=== PATIENT | female | born 1985 | race Asian ===

== ENCOUNTER 2020-01-01 13:30 | Inpatient (IN) | payer OTHER ==
[2020-01-01 14:25] VITALS: BMI 33.5
[2020-01-01] MEDS ORDERED: ELECTROLYTE-148 SOLN 1,000 ML IV SCH (15:15)
[2020-01-01] MEDS ORDERED: OXYTOCIN 30 UNITS in 0.9% NS 30 UNIT/500 ML INFUS.BAG IVPB SCH (15:15)
[2020-01-01] MEDS ORDERED: AMPICILLIN - 2 GM in SODIUM CHLORIDE 100 ML IVPB ONE (15:15)
[2020-01-01] MEDS ORDERED: AMPICILLIN SODIUM 2 GM VIAL ONE (15:28)
[2020-01-01] MEDS ORDERED: OXYTOCIN 30 UNITS in 0.9% NS 30 UNIT/500 ML INFUS.BAG IVPB ONE (15:28)
[2020-01-01 15:37] LABS: BASO % 0.9 % (0-2.0); EOS % 0.8 % (0-4.5); HEMATOCRIT 29.2 % (32.4-45.2); HEMOGLOBIN 9.3 GM/dL (10.7-15.3); LYMPH % 21.1 % (8-40); MCH 24.7 pg (25.7-33.7); MCHC 31.9 g/dl (32.0-36.0); MEAN CELL VOLUME 77.4 fl (80-96); MEAN PLT VOLUME 8.1 fl (7.5-11.1); MONO % 11.3 % (3.8-10.2); NEUT % 65.9 % (42.8-82.8); PLATELET COUNT 339 K/MM3 (134-434); RBC 3.77 M/mm3 (3.60-5.2); RDW 16.3 % (11.6-15.6); WHITE BLOOD COUNT 7.4 K/mm3 (4.0-10.0)
[2020-01-01 15:44] LABS: INR 1.03 (0.83-1.09); PROTHROMBIN TIME (PATIENT) 12.1 SEC (9.7-13.0)
[2020-01-01 15:46] LABS: ACTIVATED PTT 26.4 SECONDS (25.2-36.5)
[2020-01-01 15:54] LABS: BLOOD UREA NITROGEN 8.8 mg/dL (7-18); CALCIUM 8.7 mg/dL (8.5-10.1); CREATININE 0.7 mg/dL (0.55-1.3); POTASSIUM 3.9 mmol/L (3.5-5.1)
[2020-01-01] MEDS ORDERED: SODIUM CHLORIDE 100 ML IVPB ONE ×2 (19:11→23:25)
[2020-01-01] MEDS ORDERED: AMPICILLIN SODIUM 1 GM VIAL ONE ×2 (19:11→23:25)
[2020-01-01] MEDS: AMPICILLIN - 1 GM in SODIUM CHLORIDE 100 ML IVPB SCH ×2 (19:30→23:30)
--- NOTE | 2020-01-01 20:13 | HP ---
Past Medical History - Admission Chief Complaint: r/o srom History Source: Patient Limitations to Obtaining History: No Limitations - Past Medical History SALES SUPPORT ADMINISTRATOR: No: Alzheimer's, CVA, Dementia, Migraine, Multiple Sclerosis, Peripheral Neuropathy, Parkinson's, Seizure, Syncope, TIA, Vertigo, Other Cardiovascular: No: AFIB, Aneurysm, Aortic Insufficiency, Aortic Stenosis, CAD, CHF, Deep Vein Thrombosis, HTN, Hyperlipdemia, [place], Mitral Insufficiency, Mitral Stenosis, Murmur, Pulmonary Hypertension, Other Pulmonary: No: Asthma, Bronchitis, Cancer, COPD, O2 Dependent, Pneumonia, Prev iously Intubated, Pulmonary Embolus, Pulmonary Fibrosis, Sleep Apnea, Other Gastrointestinal: No: Ascites, Cancer, Constipation, Crohn's Disease, Diverticulitis, Diverticulosis, Esophageal Varices, Gastritis, GERD, GI Bleed, Hemorrhoids, Hiatal Hernia, Inflamatory Bowel Disease, Irritable Bowel Disease, Pancreatitis, Peptic Ulcer Disease, Ulcerative Colitis, Other Hepatobiliary: No: Cirrhosis, Cholelithiasis, Cholecystitis, Choledocholithiasis, Hepatitis A, Hepatitis B, Hepatitis C, Other Renal/: No: Renal Failure, Renal Inusuff, BPH, Cancer, Hematuria, Hemodialysis, Neurogenic Bladder, Renal Calculi, UTI, Other Reproductive: No: Ectopic , Endometriosis, Fibroids, PID, Polycystic Ovary Syndrome, Postmenopausal, Other ...: 3 ...Para: 2 ...Term: 2 ...: 0 ...Spon : 0 ...Induced : 0 ...Living Children: 2 ...Multiple Gestation: 0 ... Weeks Gestation by Dates: 39 ...EDC by Dates: 01/08/20 ...EDC by Sono: 01/08/20 Heme/Onc: No: Anemia, B12 Deficiency, Bleeding Disorder, Cancer, Current Chemotherapy, Current Radiation Therapy, Hemochromatosis, Hypercoaguable State, Myeloproliferative Synd, Sickle Cell Disease, Sickle Cell Trait, Thrombocytopenia, Other Infectious Disease: No: AIDS, C-Diff, Herpes Zoster, HIV, MRSA, STD's, Tuberculosis, VREF, Other Psych: No: Addictions, Anxiety, Bipolar, Depression, Panic, Psychosis, Schizophrenia, Other Musculoskeletal: No: Bursitis, Chronic low back pain, Hemiparesis, Hemiplegia, Osteoarthritis, Paraplegia, Other Rheumatology: No: Fibromyalgia, Gout, Lupus, Rheumatoid Arthritis, Sarcoidosis, Vasculitis, Other ENT: No: Allergic Rhinitis, Sinusitis, Other Endocrine: No: Kj's Disease, Vilma's Disease, Diabetes Insipidus, Diabetes Mellitus, Hyperparathyroidism, Hyperthyroidism, Hypothyroidism, Osteopenia, SIADH, Other Dermatology: No: Basal Cell, Cellulitis, Eczema, Melanoma, Psoriasis, Squamous Cell, Other - Past Surgical History Past Surgical History: No: None, AAA Repair, AICD, Amputation, Appendectomy, Arthrosocopy, AV Fistula/Graft, Bariatric Surgery, Breast Biopsy, Bypass, CABG, Carotid Endarterectomy, Cataract Removal, Cholecystectomy, Colectomy, Colonoscopy, Colostomy, Craniotomy, , Cystectomy, Hernia Repair, Hysterectomy, Ileal Conduit, Ileosotomy, Joint Replacement, Kidney Transplant, Laminectomy, Liver Transplant, Mastectomy, Nephrectomy, Oopherectomy, O rchiectomy, Permanent Pacemaker, Prostatectomy, Splenectomy, Stent, Thoracotomy, TURP, Tonsillectomy, Tubal Ligation, Upper Endoscopy, Valve Replacement, Vasectomy, Vein Stripping/Ligation Hx Myomectomy: No Hx Transabdominal Cerclage: No - Advance Directives Advance Directives: Yes: Living Will - Smoking History Smoking history: Never smoked Have you smoked in the past 12 months: No - Alcohol/Substance Use Hx Alcohol Use: No History of Substance Use: reports: None - Social History Usual Living Arrangement: Yes: With Significant Other Do you think of yourself as: Straight/Heterosexual ADL: Independent History of Recent Travel: No Home Medications - Allergies Allergies/Adverse Reactions: Allergies Allergy/AdvReac Type Severity Reaction Status Date / Time No Known Allergies Allergy Verified 01/01/20 14:04 Family Medical History Family History: Denies Review of Systems - Review of Systems Constitutional: reports: No Symptoms Eyes: reports: No Symptoms HENT: reports: No Symptoms Neck: reports: No Symptoms Cardiovascular: reports: No Symptoms Respiratory: reports: No Symptoms Gastrointestinal: reports: No Symptoms Genitourinary: reports: No Symptoms Breasts: reports: No Symptoms Reported Musculoskeletal: reports: No Symptoms Integumentary: reports: No Symptoms Neurological: reports: No Symptoms Endocrine: reports: No Symptoms Hematology/Lymphatic: reports: No Symptoms Psychiatric: reports: No Symptoms Physical Exam - Maternity Vital Signs: Vital Signs Temperature 98.2 F 01/01/20 19:00 Pulse Rate 74 01/01/20 19:00 Respiratory Rate 18 01/01/20 19:00 Blood Pressure 119/64 01/01/20 19:00 O2 Sat by Pulse Oximetry (%) 88 L 01/01/20 18:00 Constitutional: Yes: Well Nourished, No Distress, Calm Eyes: Yes: WNL, Conjunctiva Clear, EOM Intact HENT: Yes: WNL, Atraumatic, Normocephalic Neck: Yes: WNL, Supple, Trachea Midline Cardiovascular: Yes: WNL, Regular Rate and Rhythm Lungs: Clear to auscultation Breast(s): Yes: WNL - Abdominal Exam/OB Fundal Height: 42 Number of Fetuses: Single Presentation: Vertex Contractions: Yes Regularity: Irregular Intensity: Moderate Monitor Mode: External Heart Rate (range): 150 Heart Rate Location: [facility] Category: II Accelerations: Uniform Decelerations: None - Vaginal Exam/OB Vaginal Bleeding: No Speculum Exam: No Dilatation (cm): 2 Effacement (%): 60 Amniotic Membrane Status: Intact Presentation: Vertex/Position Station: -2 - Physical Exam Musculoskeletal: Yes: WNL Extremities: Yes: WNL Edema: Yes Edema: LUE: 2+, RUE: 2+, LLE: 2+, RLE: 2+ Integumentary: Yes: WNL Deep Tendon Reflex Grade: Normal +2 ...Motor Strength: WNL Psychiatric: Yes: WNL, Alert, Oriented - Labs Lab Results: CBC, BMP 01/01/20 15:15 01/01/20 15:15 Hemorrhage Risk Assessment - Risk Factors Medium Risk Factors: Yes: None High Risk Factors: Yes: None Risk Score: 1 Risk Level: Medium Risk Assessment/Plan for pitocin, pt persistantly stated that she soaked her bed at home with srom, i checked her in the office, she was not ruptured, but pt still insisited she is ruptured and wet, insisted of being admitted for delivery
[2020-01-01] MEDS ORDERED: DEXTROSE 5%-LACTATED RINGERS 1,000 ML IV SCH (20:15)
[2020-01-01] MEDS ORDERED: BUTORPHANOL TARTRATE 1 MG/ML VIAL IVPB ONE (23:38)
[2020-01-01] MEDS ORDERED: PROMETHAZINE HCL 25 MG/1 ML VIAL IVPUSH ONE (23:38)
[2020-01-01] MEDS ORDERED: BUTORPHANOL TARTRATE 2 MG/ML VIAL ONE (23:46)
[2020-01-01] MEDS ORDERED: PROMETHAZINE HCL 25 MG/1 ML VIAL ONE (23:46)
[2020-01-02] MEDS ORDERED: OXYTOCIN 20 UNITS in 0.9% NS 20 UNIT/1,000 ML INFUS.BAG IV ONE (00:23)
[2020-01-02] MEDS ORDERED: LIDOCAINE HCL 1% PRESERVATIVE FREE - 30ML VIAL ONE (00:23)
[2020-01-02] MEDS ORDERED: WITCH HAZEL 50% (TUCKS) 40 PAD/JAR PAD TP PRN (02:22)
[2020-01-02] MEDS ORDERED: BISACODYL 10 MG SUPP.RECT RC PRN (02:22)
[2020-01-02] MEDS ORDERED: BENZOCAINE 20% 57 GM BOTTLE TP PRN (02:22)
[2020-01-02] MEDS ORDERED: BENZOCAINE 28 GM HEMORRHOIDAL OINTMENT TP PRN (02:22)
[2020-01-02] MEDS ORDERED: oxyCODONE HCL 5 MG TABLET PO PRN (02:22)
[2020-01-02] MEDS ORDERED: METHYLERGONOVINE MALEATE 0.2 MG/1 ML AMP IM PRN (02:22)
--- NOTE | 2020-01-02 02:25 | PN ---
Progress Note (short form) - Note Progress Note: 11 pm, 4 cm ,80%, -2, requesting stadol, nst reactive, no deccels , uc q 3 min
--- NOTE | 2020-01-02 02:26 | PN ---
Delivery - Delivery Vaginal Delivery: No Problems Type of Anesthesia: Local Episiotomy/Laceration: Right Mediolateral EBL (cc): 250 (no complications ) Delivery, Single - Stages of Labor Placenta: Yes: Spontaneous - Condition of Bad Cloth Checker/Receiving Distribution Station Operator Present: No Gender: Male Position: Left, OA - Feeding Plan Initial Plan: Elected not to breastfeed exclusively throughout hospitalization
[2020-01-02] MEDS ORDERED: OXYTOCIN 20 UNITS in 0.9% NS 20 UNIT/1,000 ML INFUS.BAG IV SCH (02:30)
[2020-01-02] MEDS: AMPICILLIN - 1 GM in SODIUM CHLORIDE 100 ML IVPB SCH (04:49)
[2020-01-02] MEDS: IBUPROFEN 600 MG TABLET (FP) PO PRN ×2 (05:15→09:18)
[2020-01-02] MEDS: ACETAMINOPHEN 325 MG TABLET (FP) PO PRN ×2 (05:16→09:18)
[2020-01-02] MEDS: PRENATAL VITAMINS W/ FOLIC ACID TABLET (FP) PO SCH (09:18)
--- NOTE | 2020-01-02 20:19 | DS ---
Physical Exam-HOSPITAL MEDICAL ASSISTANT Vital Signs: Vital Signs Temperature 69 F L 01/02/20 18:00 Pulse Rate 69 01/02/20 18:00 Respiratory Rate 18 01/02/20 18:00 Blood Pressure 100/72 01/02/20 18:00 O2 Sat by Pulse Oximetry (%) 100 01/02/20 02:45 Constitutional: Yes: Well Nourished, No Distress, Calm Eyes: Yes: WNL, Conjunctiva Clear, EOM Intact HENT: Yes: WNL, Atraumatic, Normocephalic Neck: Yes: WNL, Supple, Trachea Midline Cardiovascular: Yes: WNL, Regular Rate and Rhythm Respiratory: Yes: WNL, Regular, CTA Bilaterally Gastrointestinal: Yes: WNL, Normal Bowel Sounds, Soft ...Rectal Exam: Yes: WNL Renal/: Yes: WNL Pelvis: Yes: WNL External Genitalia: Yes: Normal Internal Exam Deferred: Yes Vaginal Exam: Yes: Normal Cervix: Yes: Normal Uterus: Yes: Normal Adnexa: Normal: Bilateral ....Post : Yes: Uterus firm, Uterus non-tender Breast(s): Yes: WNL Musculoskeletal: Yes: WNL Extremities: Yes: WNL Edema: Yes Edema: LUE: 1+, RUE: 1+, LLE: 1+, RLE: 1+ Integumentary: Yes: WNL Wound/Incision: Yes: Clean/Dry, Well Approximated Neurological: Yes: WNL, Alert, Oriented ...Motor Strength: WNL Psychiatric: Yes: WNL, Alert, Oriented Labs: CBC, BMP 01/01/20 15:15 01/01/20 15:15 Delivery - Delivery Vaginal Delivery: No Problems Type of Anesthesia: Local Episiotomy/Laceration: Right Mediolateral EBL (cc): 250 (no complications ) Delivery, Single - Stages of Labor Date 1st Stage Initiatied: 01/01/20 Time 1st Stage Initiated: 21:00 Date 2nd Stage Initiated: 01/02/20 Time 2nd Stage Initiated: 01:15 Date of Delivery: 01/02/20 Time of Delivery: 01:44 Time Placenta Delivered: 01:55 Placenta: Yes: Spontaneous - Condition of Software Quality Tester/Satellite Installation Technician Present: No Infant Gender: Male Weight: 3.827 kg Position: Left, OA Total Hours ROM (Hrs/Mins): 5hrs/44min - 1 Minute Total Score: 9 5 Minutes Total Score: 9 - Feeding Plan Initial Plan: Elected not to breastfeed exclusively throughout hospitalization Discharge Summary Problems reviewed: Yes Reason For Visit: LABOR ADMIT Procedures: Principal: mariah Hospital Course: uneventful Plan of Treatment: oob Condition: Good - Instructions Diet, Activity, Other Instructions: Physical activity Resume your normal everyday activity as tolerated no heavy lifting or exercise until seen by your surgeon. You may walk unlimited clara of and climb stairs. You may resume driving the car when you feel safe and comfortable behind the wheel. No sexual activity as instructed. Wound care If you have a bandage, leave it on, and keep dry for 48-72 hours. After that time discard the outer bandage. If they are tapes on the skin under the out of bandage leave them in place. They will peel off in the next 7 to 10 days. Do Not Peel them off. You may shower the day after surgery. If there are tapes present on the skin, you may shower over them. Diet There are no dietary restrictions. Eat healthy, high-fiber foods. Drink 6 to 8 glasses of liquid each day. This will assist in keeping your bowels are regular. Pain management You may take Tylenol or acetaminophen or Ibuprofen (for example, Motrin, Advil etc.) from my pain prescription medication is ordered should be taken as prescribed for moderate to severe pain. Call MD for any of the following:call cheli dunham for 6 weeks appointment Severe pain not relieved by medication Fever of 101 or higher Excessive bleeding or drainage on dressing Inability to urinate Disposition: HOME - Home Medications Prescription Drug Monitoring Program (I-STOP) results: I-STOP reviewed and no issues identified
[2020-01-03] MEDS: IBUPROFEN 600 MG TABLET (FP) PO PRN (00:15)
[2020-01-03] MEDS: ACETAMINOPHEN 325 MG TABLET (FP) PO PRN (00:15)
[2020-01-03 08:58] LABS: BASO % 0.3 % (0-2.0); HEMATOCRIT 27.7 % (32.4-45.2); HEMOGLOBIN 8.7 GM/dL (10.7-15.3); LYMPH % 20.1 % (8-40); MCH 24.1 pg (25.7-33.7); MCHC 31.4 g/dl (32.0-36.0); MEAN CELL VOLUME 76.8 fl (80-96); MEAN PLT VOLUME 8.3 fl (7.5-11.1); MONO % 8.3 % (3.8-10.2); NEUT % 70.3 % (42.8-82.8); PLATELET COUNT 321 K/MM3 (134-434); RBC 3.61 M/mm3 (3.60-5.2); RDW 16.6 % (11.6-15.6); WHITE BLOOD COUNT 11.3 K/mm3 (4.0-10.0)
[2020-01-03] MEDS: PRENATAL VITAMINS W/ FOLIC ACID TABLET (FP) PO SCH (09:51)
[2020-01-03 12:58] VITALS: BP 107/60; PULSE 82; TEMP 98
[2020-01-03] MEDS ORDERED: SENNOSIDES/DOCUSATE COMBO (SENNA PLUS) TABLET (UD) PO PRN (22:00)
[2020-01-04 08:29] LABS: POC NITRAZINE NEG
== END 2020-01-03 15:15 | disposition home or self-care (01) | DRG 807 ==
LOC: JLDR 13:30 → J3W 01-02 03:20
PROVIDERS: ADMIT Obstetrics & Gynecology; ATTEND Obstetrics & Gynecology
PROC: 0W8NXZZ Division of Female Perineum, External Approach (ICD-10-PCS; principal; 2020-01-02)
PROC: 10E0XZZ Delivery of Products of Conception, External Approach (ICD-10-PCS; 2020-01-02)
DX: O99.824 Streptococcus B carrier state complicating childbirth (principal); O69.81X0 Labor and delivery complicated by cord around neck, without compression, not applicable or unspecified; Z37.0 Single live birth; Z3A.39 39 weeks gestation of pregnancy; Z86.19 Personal history of other infectious and parasitic diseases
CPT/HCPCS: 36415; 59409; 80048; 83986-QW; 85025; 85610; 85730; 86780; 86850; 86900; 86901; 87389; U0003